=== PATIENT | male | born 1935 | race Caucasian/White ===

== ENCOUNTER 2020-09-08 06:23 | Inpatient (IN) ==
[2020-09-02 12:23] LABS: Basophils # 0.1 10*3/uL (0.0-0.2); Basophils % 0.8 % (0.0-0.8); Eosinophils # 0.8 10*3/uL (0.0-0.87); Eosinophils % 6.1 % (0.00-10.9); Hematocrit 42.3 VOL% (42.0-52.0); Hemoglobin 14.2 GM/DL (14.0-18.0); Immature Granulocytes % 0.5 %; Immature Granulocytes Absolute 0.06 #; Lymphocytes # 3.8 10*3/uL (1.4-4.0); Lymphocytes % 29.9 % (21.2-54.2); Mean Corpuscular HGB Conc 33.6 GM/DL (32-36); Mean Corpuscular Volume 86.3 FL (87-102); Monocytes % 9.9 % (1.7-12.7); Neutrophils % 52.8 % (38.7-73.9); Platelet Count 241 T/CUMM (130-400); Red Cell Distribution Width 13.4 % (9.3-17.3); White Blood Count 12.6 T/CUMM (4-12)
[2020-09-02 12:53] LABS: Albumin 3.9 G/DL (3.4-5.0); Bilirubin,Total 0.7 MG/DL (0.2-1.0); Calcium 9.1 MG/DL (8.5-10.1); Osmolality,Calculated 277.8 MOS/KG (273-304); Total Protein 7.6 G/DL (6.4-8.3)
[2020-09-08] MEDS ORDERED: cefTRIAXone 1,000 MG in SYRINGE 1 EACH IV ONE (06:30)
[2020-09-08] MEDS ORDERED: FAMOTIDINE 20 MG TABLET PO ONE (07:49)
[2020-09-08] MEDS: LACTATED RINGERS 1,000 ML IV SCH (08:00)
[2020-09-08] MEDS ORDERED: NEOMYCIN/POLYMYXIN IRRIG SOLN 1 ML AMP BLADDERIRR ONE (08:07)
[2020-09-08] MEDS ORDERED: INDIGO CARMINE 5 ML AMP ONE (09:02)
[2020-09-08] MEDS ORDERED: ONDANSETRON 4 MG/2 ML VIAL IV PRN ×2 (10:17→10:30)
[2020-09-08] MEDS ORDERED: LACTULOSE 20 GM/30 ML UDCUP PO PRN (10:17)
[2020-09-08] MEDS ORDERED: oxyCODONE/ACETAMINOPHEN 5-325 MG TABLET PO PRN (10:17)
[2020-09-08] MEDS ORDERED: diphenhydrAMINE 50 MG/1 ML VIAL IV PRN (10:17)
[2020-09-08] MEDS ORDERED: HYDROmorphone 2 MG/1 ML VIAL IV PRN (10:22)
[2020-09-08] MEDS ORDERED: GLUCAGON 1 MG VIAL IM PRN (10:22)
[2020-09-08] MEDS ORDERED: DEXTROSE 50% 25 GM/50 ML VIAL IV PRN (10:22)
[2020-09-08] MEDS ORDERED: BELLADONNA/OPIUM 30 MG SUPP RECTAL ONE ×2 (10:28→10:30)
[2020-09-08] MEDS: HYDROmorphone 2 MG/1 ML VIAL IV PRN ×4 (10:35→10:50)
[2020-09-08] MEDS ORDERED: SEVOFLURANE 1 UNIT/15 MINUTE INH ONE (10:39)
[2020-09-08] MEDS ORDERED: LIDOCAINE 2% 5 ML VIAL ONE (10:39)
[2020-09-08] MEDS ORDERED: propofoL 200 MG/20 ML VIAL IV ONE (10:39)
[2020-09-08] MEDS ORDERED: GLYCOPYRROLATE 0.4 MG/2 ML VIAL ONE (10:40)
[2020-09-08] MEDS ORDERED: ePHEDrine 50 MG/ML VIAL ONE (10:40)
[2020-09-08] MEDS ORDERED: fentaNYL 100 MCG/2 ML VIAL ONE (10:40)
[2020-09-08] MEDS ORDERED: ONDANSETRON 4 MG/2 ML VIAL ONE (10:40)
[2020-09-08] MEDS ORDERED: ROCURONIUM 100 MG/10 ML VIAL IV ONE (10:41)
[2020-09-08] MEDS ORDERED: PHENYLEPHRINE 1 MG/10 ML SYRINGE IV ONE (10:41)
[2020-09-08] MEDS ORDERED: LACTATED RINGERS 1,000 ML IV ONE (10:41)
[2020-09-08] MEDS ORDERED: SUCCINYLCHOLINE 200 MG/10 ML VIAL ONE (10:41)
[2020-09-08] MEDS ORDERED: NEOSTIGMINE 10 MG/10 ML VIAL ONE (10:41)
[2020-09-08 10:55] LABS: Basophils # 0.1 10*3/uL (0.0-0.2); Basophils % 0.8 % (0.0-0.8); Eosinophils # 0.7 10*3/uL (0.0-0.87); Eosinophils % 6.5 % (0.00-10.9); Hematocrit 39.9 VOL% (42.0-52.0); Hemoglobin 13.4 GM/DL (14.0-18.0); Immature Granulocytes % 0.6 %; Immature Granulocytes Absolute 0.06 #; Lymphocytes # 3.7 10*3/uL (1.4-4.0); Lymphocytes % 35.1 % (21.2-54.2); Mean Corpuscular HGB Conc 33.6 GM/DL (32-36); Mean Corpuscular Volume 87.9 FL (87-102); Mean Platelet Volume 10.4 FL (9.6-12.0); Monocytes % 7.5 % (1.7-12.7); Neutrophils % 49.5 % (38.7-73.9); Platelet Count 212 T/CUMM (130-400); Red Blood Count 4.54 MC/CUMM (3.8-5.5); Red Cell Distribution Width 13.7 % (9.3-17.3); White Blood Count 10.6 T/CUMM (4-12)
[2020-09-08 11:17] LABS: Calcium 8.7 MG/DL (8.5-10.1); Osmolality,Calculated 281.7 MOS/KG (273-304)
[2020-09-08] MEDS: INSULIN REGULAR 100 UNIT/ML SUBCUT SCH ×3 (13:57→21:57)
[2020-09-08] MEDS: SODIUM CHLORIDE 0.9% 1,000 ML IV SCH (13:57)
[2020-09-08] MEDS: ACETAMINOPHEN 325 MG TABLET PO SCH ×3 (13:57→22:36)
[2020-09-08] MEDS: ceFAZolin 2,000 MG in PREMIX 1 EACH IV SCH (17:21)
[2020-09-08] MEDS: amLODIPine 5 MG TABLET PO SCH (18:40)
[2020-09-08] MEDS: OXYBUTYNIN XL 15 MG TABLET PO SCH (21:57)
[2020-09-08] MEDS: metFORMIN 500 MG TABLET PO SCH (21:57)
[2020-09-09] MEDS: ceFAZolin 2,000 MG in PREMIX 1 EACH IV SCH (02:17)
[2020-09-09] MEDS: ACETAMINOPHEN 325 MG TABLET PO SCH ×3 (04:50→20:54)
[2020-09-09 05:10] LABS: Basophils # 0.1 10*3/uL (0.0-0.2); Basophils % 0.8 % (0.0-0.8); Eosinophils # 0.6 10*3/uL (0.0-0.87); Eosinophils % 5.6 % (0.00-10.9); Hematocrit 36.8 VOL% (42.0-52.0); Hemoglobin 12.2 GM/DL (14.0-18.0); Immature Granulocytes % 0.5 %; Immature Granulocytes Absolute 0.06 #; Lymphocytes # 2.4 10*3/uL (1.4-4.0); Lymphocytes % 21.7 % (21.2-54.2); Mean Corpuscular HGB Conc 33.2 GM/DL (32-36); Mean Corpuscular Volume 87.8 FL (87-102); Monocytes % 9.2 % (1.7-12.7); Neutrophils % 62.2 % (38.7-73.9); Platelet Count 199 T/CUMM (130-400); Red Blood Count 4.19 MC/CUMM (3.8-5.5); Red Cell Distribution Width 13.8 % (9.3-17.3); White Blood Count 11.2 T/CUMM (4-12)
[2020-09-09 05:27] LABS: Osmolality,Calculated 281.5 MOS/KG (273-304)
[2020-09-09] MEDS: INSULIN REGULAR 100 UNIT/ML SUBCUT SCH ×4 (07:37→20:54)
[2020-09-09] MEDS: LACTATED RINGERS 1,000 ML IV SCH (07:39)
[2020-09-09] MEDS: SODIUM CHLORIDE 0.9% 1,000 ML IV SCH (07:39)
[2020-09-09] MEDS: metFORMIN 500 MG TABLET PO SCH ×2 (08:55→20:54)
[2020-09-09] MEDS: FINASTERIDE 5 MG TABLET PO SCH (08:55)
[2020-09-09] MEDS: cefTRIAXone 1,000 MG in SYRINGE 1 EACH IV SCH (08:55)
[2020-09-09] MEDS: amLODIPine 5 MG TABLET PO SCH (20:54)
[2020-09-09] MEDS: OXYBUTYNIN XL 15 MG TABLET PO SCH (20:54)
[2020-09-10] MEDS: ACETAMINOPHEN 325 MG TABLET PO SCH ×2 (06:00→08:34)
[2020-09-10 07:50] VITALS: BP 193/95
[2020-09-10] MEDS: INSULIN REGULAR 100 UNIT/ML SUBCUT SCH (07:51)
[2020-09-10] MEDS: FINASTERIDE 5 MG TABLET PO SCH (08:34)
[2020-09-10] MEDS: cefTRIAXone 1,000 MG in SYRINGE 1 EACH IV SCH (08:34)
[2020-09-10] MEDS: metFORMIN 500 MG TABLET PO SCH (08:34)
== END 2020-09-10 09:53 | disposition home or self-care (01) | DRG 666 ==
LOC: N.OR 06:23 → N.SDSINP 06:24 → N.5E 13:28
PROVIDERS: ADMIT Surgery; ATTEND Surgery